=== PATIENT | female | born 1985 | race Caucasian/White ===

== ENCOUNTER 2019-07-04 16:21 | Emergency (ER) | payer OTHER ==
[~2019-07-04] VITALS: Ht 157.5 cm; Wt 59.0 kg
== END 2019-07-04 21:09 | disposition home or self-care (01) ==
LOC: ER 16:21
DX: N20.0 Calculus of kidney (principal)

== ENCOUNTER 2020-02-18 05:48 | Day surgery (SDC) | payer OTHER ==
[2020-02-18] MEDS ORDERED: MORGIDOX100 MG PO (12:14)
[2020-02-18] MEDS ORDERED: Tylenol #3 PO (12:14)
== END 2020-02-18 17:25 | disposition home or self-care (01) ==
LOC: CIR.AMB 05:48
DX: D25.0 Submucous leiomyoma of uterus (principal); N84.0 Polyp of corpus uteri